=== PATIENT | female | born 1955 | race Caucasian/White ===

== ENCOUNTER → 2022-04-14 | Outpatient (CLI) | payer OTHER ==
[~2022-04-14] VITALS: Ht 162.6 cm; Wt 108.4 kg
[~2022-04-14] MED LIST: CALCIUM 500 +1 EAC5 PO; CETIRIZINE HCL10 MG PO; CRESTOR20 MG PO; DIAZEPAM5 MG PO; DICLOFENAC; DICLOFENAC SODI75 MG PO; ECOTRIN81 MG PO; FARXIGA10 MG PO; FLUOXETINE HCL40 MG PO; FOLIC ACID1 MG PO; GABAPENTIN300 MG PO; IBU800 MG PO; IPRAT-ALBUT 0.5-3 ML INH; ISOSORBIDE MONO30 MG PO; LANSOPRAZOLE30 M1 PO; LASIX20 MG PO; LEVOTHYROXINE75 MC1 PO; LOSARTAN-HCTZ1 EACH PO; METOPROLOL SUCC25 MG PO; MONTELUKAST SOD10 MG PO; PROAIR HFA8.5 GM INH; ROPINIROLE HC0.25 MG PO; SPIRIVA RESPIMAT4 GM INH; TUMS300 MG PO
[2022-04-14 13:59] LABS: HEMOGLOBIN 14.9 gm/dl (12.3-15.3); RED BLOOD COUNT 4.79 M/UL (4.00-5.10); WHITE BLOOD COUNT 7.5 K/UL (4.5-11.0)
== END ==
LOC: EDSTATUS 12:30 → OPSV2 12:30
PROVIDERS: Orthopaedic Surgery
DX: Z01.818 Encounter for other preprocedural examination (principal); M17.11 Unilateral primary osteoarthritis, right knee
CPT/HCPCS: 71046; 80048; 85025; 93005

== ENCOUNTER 2022-04-27 00:29 | Emergency (ER) | payer OTHER ==
[2022-05-01] MEDS ORDERED: PERCOCET 7.5-31 EACH PO (14:47)
== END 2022-04-27 04:12 | disposition home or self-care (01) ==
LOC: ER1 00:29
DX: M79.631 Pain in right forearm (principal); R20.2 Paresthesia of skin; R00.1 Bradycardia, unspecified; E78.5 Hyperlipidemia, unspecified; E11.9 Type 2 diabetes mellitus without complications; I10 Essential (primary) hypertension; Z88.5 Allergy status to narcotic agent
CPT/HCPCS: 93005; 99284

== ENCOUNTER → 2022-04-28 | Outpatient (CLI) | payer MEDICARE, OTHER ==
[~2022-04-28] MED LIST changes: +ASPIR-TRIN325 MG PO; +ELIQUIS 2.5 MG2.5 MG PO; +HYDROCODON-ACE1 EAC2 PO; +PERCOCET 7.5-31 EACH PO; +STIOLTO RESPIMAT4 GM INH
== END ==
LOC: LAB 13:38
PROVIDERS: Orthopaedic Surgery
DX: Z01.812 Encounter for preprocedural laboratory examination (principal)
CPT/HCPCS: 36415; 80048; 86850; 86900; 86901

== ENCOUNTER 2022-04-29 10:14 | Day surgery (SDC) | payer MEDICARE, OTHER ==
[~2022-04-29] VITALS: Ht 162.6 cm; Wt 108.4 kg
[~2022-04-29 10:14] MED LIST changes: -ASPIR-TRIN325 MG PO; -ELIQUIS 2.5 MG2.5 MG PO; -HYDROCODON-ACE1 EAC2 PO; -PERCOCET 7.5-31 EACH PO; -STIOLTO RESPIMAT4 GM INH
[2022-04-29] MEDS ORDERED: STIOLTO RESPIMAT4 GM INH (10:47)
[2022-04-30 02:52] LABS: HEMOGLOBIN 13.7 gm/dl (12.3-15.3); RED BLOOD COUNT 4.42 M/UL (4.00-5.10); WHITE BLOOD COUNT 12.3 K/UL (4.5-11.0)
[2022-04-30] MEDS ORDERED: ASPIR-TRIN325 MG PO (07:23)
[2022-04-30] MEDS ORDERED: HYDROCODON-ACE1 EAC2 PO (07:23)
[2022-04-30] MEDS ORDERED: ELIQUIS 2.5 MG2.5 MG PO (09:15)
--- NOTE | 2022-04-30 11:51 | NUR ---
patient ambulates hallway with PT using walker. patient jarek well
--- NOTE | 2022-04-30 11:52 | NUR ---
report given to admitting nurse- jerilyn [facility]
[2022-05-01] MEDS ORDERED: PERCOCET 7.5-31 EACH PO (14:47)
== END 2022-04-30 12:17 | disposition home or self-care (01) ==
LOC: OR 10:14 → M/S 10:14 → OR 14:35 → EDSTATUS 14:45 → OR 14:45 → M/S 18:36 → OR 04-30 12:17
PROVIDERS: Orthopaedic Surgery
DX: M17.11 Unilateral primary osteoarthritis, right knee (principal); M21.061 Valgus deformity, not elsewhere classified, right knee; G89.18 Other acute postprocedural pain; I10 Essential (primary) hypertension; E78.5 Hyperlipidemia, unspecified; J44.9 Chronic obstructive pulmonary disease, unspecified; I25.10 Atherosclerotic heart disease of native coronary artery without angina pectoris; K21.9 Gastro-esophageal reflux disease without esophagitis; G25.81 Restless legs syndrome; Z88.1 Allergy status to other antibiotic agents; Z88.5 Allergy status to narcotic agent; Z88.6 Allergy status to analgesic agent; Z79.82 Long term (current) use of aspirin; Z79.84 Long term (current) use of oral hypoglycemic drugs; Z79.899 Other long term (current) drug therapy
CPT/HCPCS: 73560; 76000; 82962; 85025; 97162; 97166; 97530; C1713; C1776; J0360; J0690; J1100; J1170; J1885; J2001; J2405; J2704; J2710; J2795; J3010; J3370